=== PATIENT | male | born 1995 | race Caucasian/White ===

== ENCOUNTER 2018-07-13 03:00 | Emergency (ER) | payer BC, MEDICAID ==
[2018-07-13 03:09] VITALS: BP 151/97
[2018-07-13] MEDS ORDERED: Clindamycin HCl 150 MG Cap PO ONE (03:21)
--- NOTE | 2018-07-13 03:31 | EDM.PDOC ---
ED HPI GENERAL MEDICAL PROBLEM - General Chief Complaint: General Stated Complaint: MOUTH PAIN [id number] Time Seen by Provider: 07/13/18 03:15 Source of Information: Reports: Patient, Family, RN, RN Notes Reviewed History Limitations: Reports: No Limitations - History of Present Illness INITIAL COMMENTS - FREE TEXT/NARRATIVE: Pt to the ER with dental pain. Patient states he was seen in the clinic on 07/08 and started on Amoxicillin for a dental abscess. He states he has been taking the medication as prescribed and it seems to be getting worse. Patient states he has not made an appointment with dental. He denies fever or chills, N/V/D. He states the side of his face is hot and painful. 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 Left Lower Face Pain Score (Numeric/FACES): 6 - Related Data Allergies Allergy/AdvReac Type Severity Reaction Status Date / Time cephalexin [Cephalexin] Allergy Edema Verified 07/13/18 03:08 Cephalosporins Allergy unknown Verified 07/13/18 03:08 Home Meds: Home Meds Amoxicillin 500 mg PO TID 07/13/18 [History] Past Medical History - Past Health History Medical/Surgical History: Denies Medical/Surgical History HEENT History: Reports: Other (See Below) Other HEENT History: "bad teeth" Genitourinary History: Reports: Renal Calculus Psychiatric History: Reports: ADHD - Past Surgical History GI Surgical History: Reports: Appendectomy Male Surgical History: Reports: Lithotripsy (ESWL) Social & Family History - Family History Family Medical History: Noncontributory - Tobacco Use Smoking Status *Q: Unknown Ever Smoked - Caffeine Use Caffeine Use: Reports: Soda - Recreational Drug Use Recreational Drug Use: Yes Recreational Drug Type: Reports: Marijuana/Hashish Recreational Drug Use Frequency: Binges ED ROS GENERAL - Review of Systems Review Of Systems: ROS reveals no pertinent complaints other than HPI. ED EXAM, GENERAL - Physical Exam Exam: See Below Exam Limited By: No Limitations General Appearance: Alert, WD/WN, Mild Distress Eye Exam: Bilateral Eye: EOMI, Normal Inspection Ears: Normal External Exam, Hearing Grossly Normal Nose: Normal Inspection Throat/Mouth: Normal Inspection, Normal Voice, No Airway Compromise, Other ( Dental caries, swelling around the left lower 1st and 2nd molars). No: Normal Teeth Head: Atraumatic, Normocephalic Neck: Normal Inspection, Lymphadenopathy (L) Respiratory/Chest: No Respiratory Distress, Lungs Clear, Normal Breath Sounds, No Accessory Muscle Use, Chest Non-Tender Cardiovascular: Normal Peripheral Pulses, Regular Rate, Rhythm, No Edema, No Gallop, No JVD, No Murmur, No Rub Peripheral Pulses: 2+: Radial (L), Radial (R) GI/Abdominal: Normal Bowel Sounds, Soft, Non-Tender (Male) Exam: Deferred Rectal (Males) Exam: Deferred Back Exam: Normal Inspection Extremities: Normal Inspection, Normal Range of Motion, Non-Tender, Normal Capillary Refill, No Pedal Edema Neurological: Alert, Oriented Psychiatric: Normal Affect, Normal Mood Skin Exam: Warm, Dry, Intact, Normal Color, No Rash Lymphatic: Adenopathy (left) Course - Vital Signs Last Recorded V/S: Last Vital Signs Temp 97.6 F 07/13/18 03:08 Pulse 84 07/13/18 03:08 Resp 19 07/13/18 03:08 BP 151/97 H 07/13/18 03:08 Pulse Ox 100 07/13/18 03:08 - Orders/Labs/Meds Meds: Medications Discontinued Medications Generic Name Dose Route Start Last Admin Trade Name Freq PRN Reason Stop Dose Admin Clindamycin HCl 600 mg 07/13/18 03:21 Cleocin PO 07/13/18 03:22 ONETIME ONE Departure - Departure Time of Disposition: 03:27 Disposition: Home, Self-Care 01 Condition: Fair Clinical Impression: Dental abscess - Discharge Information *PRESCRIPTION DRUG MONITORING PROGRAM REVIEWED*: No *COPY OF PRESCRIPTION DRUG MONITORING REPORT IN PATIENT JACOB: No Instructions: Dental Abscess, [id number] Additional Instructions: Follow up with dentist You may take Tylenol and/or Ibuprofen as directed for pain Maximum of 4000mg of Tylenol in 24 hours Drink plenty of fluids RX: Clindamycin
[2018-07-13] MEDS ORDERED: Lidocaine 2% Viscous Solution 100 ML Bottle PO ONE (03:32)
[2018-07-13] MEDS ORDERED: Lidocaine 2% Viscous Solution 15 ML Cup PO ONE (03:40)
== END 2018-07-13 03:53 | disposition home or self-care (01) ==
LOC: DL.ED 03:00
DX: K04.7 Periapical abscess without sinus (principal); Z88.1 Allergy status to other antibiotic agents
CPT/HCPCS: 99282; A9270-GY

== ENCOUNTER 2019-09-16 10:35 | Emergency (ER) | payer MEDICAID ==
[2019-09-16 11:31] LABS: ANION GAP 10.7; CHLORIDE,CL 105 mmol/L (101-111); SODIUM,NA 136 mmol/L (135-145)
[2019-09-16] MEDS ORDERED: Aspirin 81 MG Tab.Chew PO ONE (11:43)
--- NOTE | 2019-09-16 11:50 | EDM.PDOC ---
ED HPI GENERAL MEDICAL PROBLEM - General Chief Complaint: Chest Pain Stated Complaint: CHEST PAIN, HIGH BP Time Seen by Provider: 09/16/19 10:45 Source of Information: Reports: Patient History Limitations: Reports: No Limitations - History of Present Illness INITIAL COMMENTS - FREE TEXT/NARRATIVE: This 24 yo male patient reports to the ED with left sided chest pain that started about 1 hour prior to coming to the ED. The patient reports he currently does not have any chest pain. The patient states that he was having a panic attack while in the vehicle outside the hospital. The patient reports that he was seen in the Clinic 2 days ago for high blood pressure. The patient reports he has been taking his medications as prescribed. Onset: Today Duration: Hour(s):, Resolved Prior to Arrival Location: Reports: Chest (left sided chest pain) Quality: Reports: Other Severity: Mild Improves with: Reports: None Worsens with: Reports: None Context: Reports: Other Associated Symptoms: Reports: Chest Pain - Related Data Allergies Allergy/AdvReac Type Severity Reaction Status Date / Time cephalexin [Cephalexin] Allergy Edema Verified 09/16/19 10:42 Cephalosporins Allergy unknown Verified 09/16/19 10:42 Home Meds: Home Meds Acetaminophen [Tylenol] 500 mg PO Q6H PRN 12/22/18 [History] Calcium Carbonate [Tums] 1 tab PO ASDIRECTED 12/22/18 [History] Ibuprofen 200 mg PO Q6H PRN 12/22/18 [History] Multivitamin [Poly-Vitamin] 1 tab PO DAILY 12/22/18 [History] hydrOXYzine HCl [hydrOXYzine] 25 - 50 mg PO TID PRN 12/22/18 [History] Clindamycin HCl 300 mg PO TID 09/16/19 [History] Past Medical History - Past Health History Medical/Surgical History: Denies Medical/Surgical History HEENT History: Reports: Other (See Below) Other HEENT History: "bad teeth" Cardiovascular History: Reports: Hypertension Respiratory History: Reports: None Gastrointestinal History: Reports: GERD Genitourinary History: Reports: Renal Calculus Musculoskeletal History: Reports: None Neurological History: Reports: None Psychiatric History: Reports: ADHD, Anxiety Endocrine/Metabolic History: Reports: Obesity/BMI 30+ Hematologic History: Reports: None Immunologic History: Reports: None Oncologic (Cancer) History: Reports: None Dermatologic History: Reports: None - Infectious Disease History Infectious Disease History: Reports: None - Past Surgical History GI Surgical History: Reports: Appendectomy Male Surgical History: Reports: Kidney Stone Extraction, Lithotripsy (ESWL) Social & Family History - Family History Family Medical History: Noncontributory - Tobacco Use Years of Tobacco use: 6 Packs/Tins Daily: 1 - Caffeine Use Caffeine Use: Reports: Soda - Recreational Drug Use Recreational Drug Use: No ED ROS GENERAL - Review of Systems Review Of Systems: Comprehensive ROS is negative, except as noted in HPI. ED EXAM, GENERAL - Physical Exam Exam: See Below Exam Limited By: No Limitations General Appearance: Alert, WD/WN, No Apparent Distress Eye Exam: Bilateral Eye: EOMI, Normal Inspection, PERRL Ears: Normal External Exam, Normal Canal, Hearing Grossly Normal, Normal TMs Nose: Normal Inspection, Normal Mucosa, No Blood Throat/Mouth: Normal Inspection, Normal Lips, Normal Teeth, Normal Gums, Normal Oropharynx, Normal Voice, No Airway Compromise Head: Atraumatic, Normocephalic Neck: Normal Inspection, Supple, Non-Tender, Full Range of Motion Respiratory/Chest: No Respiratory Distress, Lungs Clear, Normal Breath Sounds, No Accessory Muscle Use, Chest Non-Tender Cardiovascular: Normal Peripheral Pulses, Regular Rate, Rhythm, No Edema, No Gallop, No JVD, No Murmur, No Rub GI/Abdominal: Normal Bowel Sounds, Soft, Non-Tender, No Organomegaly, No Distention, No Abnormal Bruit, No Mass (Male) Exam: Deferred Rectal (Males) Exam: Deferred Back Exam: Normal Inspection Extremities: Normal Inspection, Normal Range of Motion, Non-Tender, Normal Capillary Refill, No Pedal Edema Neurological: Alert, Oriented, CN II-XII Intact, Normal Cognition, Normal Gait, Normal Reflexes, No Motor/Sensory Deficits Psychiatric: Anxious Skin Exam: Warm, Dry, Intact, Normal Color, No Rash Lymphatic: No Adenopathy Course - Vital Signs Last Recorded V/S: Last Vital Signs Temp 36.8 C 09/16/19 12:30 Pulse 75 09/16/19 14:00 Resp 19 09/16/19 12:30 BP 91/70 09/16/19 14:00 Pulse Ox 99 09/16/19 12:30 - Orders/Labs/Meds Orders: Active Orders 24 hr Category Date Time Status EKG 12 Lead [EKG Documentation Completion] [RC] STAT Care 09/16/19 10:53 Active EKG Documentation Completion [RC] URGENT Care 09/16/19 10:56 Active EKG Documentation Completion [RC] URGENT Care 09/16/19 14:00 Active Labs: Laboratory Tests 09/16/19 09/16/19 09/16/19 Range/Units 11:04 11:04 11:13 WBC 6.3 (5.0-10.0) 10^3/uL RBC 6.06 (4.6-6.2) 10^6/uL Hgb 16.8 (14.0-18.0) g/dL Hct 49.0 (40.0-54.0) % MCV 80.9 D (80-100) fL MCH 27.7 (27.0-34.0) pg MCHC 34.3 (33.0-35.0) g/dL Plt Count 299 (150-450) 10^3/uL Neut % (Auto) 55.5 (42.2-75.2) % Lymph % (Auto) 34.7 (20.5-50.1) % [place] % (Auto) 7.1 (2-8) % Eos % (Auto) 2.1 (1.0-3.0) % Baso % (Auto) 0.6 (0.0-1.0) % Sodium 136 (135-145) mmol/L Potassium 3.7 (3.6-5.0) mmol/L Chloride 105 (101-111) mmol/L Carbon Dioxide 24.0 (21.0-31.0) mmol/L Anion Gap 10.7 BUN 15 (7-18) mg/dL Creatinine 0.9 (0.6-1.3) mg/dL Est Cr Clr Drug Dosing 100.10 mL/min Estimated GFR (MDRD) > 60 BUN/Creatinine Ratio 16.66 Glucose 115 H (74-105) mg/dL Calcium 9.3 (8.4-10.2) mg/dl Total Bilirubin 0.6 (0.2-1.0) mg/dL AST 31 (10-42) IU/L ALT 32 (10-60) IU/L Alkaline Phosphatase 59 (42-121) IU/L Troponin I 0.03 H* (0.00-0.02) ng/ml Total Protein 7.0 (6.7-8.2) g/dl Albumin 4.1 (3.2-5.5) g/dl Globulin 2.9 Albumin/Globulin Ratio 1.41 Urine Color Yellow (YELLOW) Urine Appearance Clear (CLEAR) Urine pH 7.5 (5.0-9.0) Ur Specific [place] 1.020 (1.005-1.030) Urine Protein Negative (NEGATIVE) Urine Glucose (UA) Negative (NEGATIVE) Urine Ketones Negative (NEGATIVE) Urine Occult Blood Trace-intact H (NEGATIVE) Urine Nitrite Negative (NEGATIVE) Urine Bilirubin Negative (NEGATIVE) Urine Urobilinogen 0.2 (0.2-1.0) mg/dL Ur Leukocyte Esterase Negative (NEGATIVE) Urine RBC Not seen /HPF Urine WBC Not seen (0-5/HPF) /HPF Ur Epithelial Cells Rare (NOT SEEN) /HPF Urine Bacteria Not seen (0-FEW/HPF) /HPF Urine Mucus Not seen (NOT SEEN) /LPF Urine Opiates Screen (NEGATIVE) Ur Oxycodone Screen (NEGATIVE) Urine Methadone Screen (NEGATIVE) Ur Barbiturates Screen (NEGATIVE) U Tricyclic Antidepress (NEGATIVE) Ur Phencyclidine Scrn (NEGATIVE) Ur Amphetamine Screen (NEGATIVE) U Methamphetamines Scrn (NEGATIVE) Urine MDMA Screen (NEGATIVE) U Benzodiazepines Scrn (NEGATIVE) Urine Cocaine Screen (NEGATIVE) U Marijuana (THC) Screen (NEGATIVE) 09/16/19 09/16/19 Range/Units 11:13 14:05 WBC (5.0-10.0) 10^3/uL RBC (4.6-6.2) 10^6/uL Hgb (14.0-18.0) g/dL Hct (40.0-54.0) % MCV (80-100) fL MCH (27.0-34.0) pg MCHC (33.0-35.0) g/dL Plt Count (150-450) 10^3/uL Neut % (Auto) (42.2-75.2) % Lymph % (Auto) (20.5-50.1) % [place] % (Auto) (2-8) % Eos % (Auto) (1.0-3.0) % Baso % (Auto) (0.0-1.0) % Sodium (135-145) mmol/L Potassium (3.6-5.0) mmol/L Chloride (101-111) mmol/L Carbon Dioxide (21.0-31.0) mmol/L Anion Gap BUN (7-18) mg/dL Creatinine (0.6-1.3) mg/dL Est Cr Clr Drug Dosing mL/min Estimated GFR (MDRD) BUN/Creatinine Ratio Glucose (74-105) mg/dL Calcium (8.4-10.2) mg/dl Total Bilirubin (0.2-1.0) mg/dL AST (10-42) IU/L ALT (10-60) IU/L Alkaline Phosphatase (42-121) IU/L Troponin I < 0.02 (0.00-0.02) ng/ml Total Protein (6.7-8.2) g/dl Albumin (3.2-5.5) g/dl Globulin Albumin/Globulin Ratio Urine Color (YELLOW) Urine Appearance (CLEAR) Urine pH (5.0-9.0) Ur Specific [place] (1.005-1.030) Urine Protein (NEGATIVE) Urine Glucose (UA) (NEGATIVE) Urine Ketones (NEGATIVE) Urine Occult Blood (NEGATIVE) Urine Nitrite (NEGATIVE) Urine Bilirubin (NEGATIVE) Urine Urobilinogen (0.2-1.0) mg/dL Ur Leukocyte Esterase (NEGATIVE) Urine RBC /HPF Urine WBC (0-5/HPF) /HPF Ur Epithelial Cells (NOT SEEN) /HPF Urine Bacteria (0-FEW/HPF) /HPF Urine Mucus (NOT SEEN) /LPF Urine Opiates Screen Negative (NEGATIVE) Ur Oxycodone Screen Negative (NEGATIVE) Urine Methadone Screen Negative (NEGATIVE) Ur Barbiturates Screen Negative (NEGATIVE) U Tricyclic Antidepress Negative (NEGATIVE) Ur Phencyclidine Scrn Negative (NEGATIVE) Ur Amphetamine Screen Negative (NEGATIVE) U Methamphetamines Scrn Negative (NEGATIVE) Urine MDMA Screen Negative (NEGATIVE) U Benzodiazepines Scrn Negative (NEGATIVE) Urine Cocaine Screen Negative (NEGATIVE) U Marijuana (THC) Screen Negative (NEGATIVE) Meds: Medications Discontinued Medications Generic Name Dose Route Start Last Admin Trade Name Freq PRN Reason Stop Dose Admin Aspirin 324 mg 09/16/19 11:43 09/16/19 11:49 Aspirin PO 09/16/19 11:44 324 mg ONETIME ONE Administration Departure - Departure Time of Disposition: 14:52 Disposition: Home, Self-Care 01 Condition: Good, Fair Clinical Impression: Anxiety, Nonspecific chest pain Instructions: Panic Attack, Nonspecific Chest Pain, [id number] Forms: ED Department Discharge Care Plan Goals: The patient was advised of the examination, lab, EKG, x-ray, repeat lab and repeat EKG results during the visit. The patient was encouraged to follow-up with his primary care facility for continued evaluation and management. If the patient has any additional symptoms or concerns, the patient should either return to the emergency department or visit his primary care facility. - My Orders Last 24 Hours: My Active Orders 09/16/19 10:53 EKG 12 Lead [EKG Documentation Completion] [RC] STAT 09/16/19 10:56 EKG Documentation Completion [RC] URGENT 09/16/19 14:00 EKG Documentation Completion [RC] URGENT - Assessment/Plan Last 24 Hours: My Active Orders 09/16/19 10:53 EKG 12 Lead [EKG Documentation Completion] [RC] STAT 09/16/19 10:56 EKG Documentation Completion [RC] URGENT 09/16/19 14:00 EKG Documentation Completion [RC] URGENT
--- NOTE | 2019-09-16 12:10 | CR ---
EXAMINATION: Chest 1V Frontal SEX: Male AGE: 24 years CLINICAL HISTORY: 24-year-old male experiencing CHEST PAIN. INTERPRETATION: 1. Normal cardiac silhouette. No pulmonary vascular congestion, cephalization of flow, alveolar edema or dependent pleural effusion (external traffic monitor specialist leads). 2. Tay thorax unremarkable. 3. No lung mass, hilar lymphadenopathy or focal lobar pneumonia. 4. No atelectasis/collapse. 5. No pneumothorax. CONCLUSION: Negative exam.
[2019-09-16 12:35] VITALS: PULSE 75
[2019-09-16 14:34] VITALS: BP 91/70
== END 2019-09-16 15:05 | disposition home or self-care (01) ==
LOC: DL.ED 10:35
DX: F41.9 Anxiety disorder, unspecified (principal); E66.9 Obesity, unspecified; I10 Essential (primary) hypertension; Z88.1 Allergy status to other antibiotic agents; Z88.8 Allergy status to other drugs, medicaments and biological substances; Z68.41 Body mass index [BMI] 40.0-44.9, adult
CPT/HCPCS: 36415; 71045; 80053; 80305; 81001; 84484; 85025; 93005; 99285; A9270

== ENCOUNTER 2020-07-29 01:43 | Emergency (ER) | payer MEDICAID ==
[2020-07-29] MEDS ORDERED: Ondansetron 4 MG/2 ML SDV IVPUSH PRN (01:49)
[2020-07-29] MEDS ORDERED: Sodium Chloride 0.9% 1,000 ML IV ONE (01:49)
--- NOTE | 2020-07-29 01:56 | EDM.PDOC ---
ED HPI GENERAL MEDICAL PROBLEM - General Chief Complaint: Abdominal Pain Stated Complaint: PT SAYS LEFTSIDE PAIN,KIDNEY STONE NOT TO LONG AGO Time Seen by Provider: 07/29/20 01:55 Source of Information: Reports: Patient, RN History Limitations: Reports: No Limitations - History of Present Illness INITIAL COMMENTS - FREE TEXT/NARRATIVE: ED with c/o left lower abdominal pain similar to previous with kidney stone. Proior on right and most recent April on left. Pain 8/10 at home, comes and goes now 4/10 no nausea or vomiting. No fever. Urinary frequency no burning or blood. 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 Last BM 2199. Left Abdominal Pain Score (Numeric/FACES): 4 - Related Data Allergies Allergy/AdvReac Type Severity Reaction Status Date / Time cephalexin [Cephalexin] Allergy Edema Verified 07/29/20 01:51 Cephalosporins Allergy unknown Verified 07/29/20 01:51 Home Meds: Home Meds Acetaminophen [Tylenol] 500 mg PO Q6H PRN 12/22/18 [History] Calcium Carbonate [Tums] 1 tab PO ASDIRECTED 12/22/18 [History] Ibuprofen 200 mg PO Q6H PRN 12/22/18 [History] Multivitamin [Poly-Vitamin] 1 tab PO DAILY 12/22/18 [History] hydrOXYzine HCL [hydrOXYzine] 25 - 50 mg PO TID PRN 12/22/18 [History] Clindamycin HCl 300 mg PO TID 09/16/19 [History] Past Medical History - Past Health History Medical/Surgical History: Denies Medical/Surgical History HEENT History: Reports: Other (See Below) Other HEENT History: "bad teeth" Cardiovascular History: Reports: Hypertension Respiratory History: Reports: None Gastrointestinal History: Reports: GERD Genitourinary History: Reports: Renal Calculus Musculoskeletal History: Reports: None Neurological History: Reports: None Psychiatric History: Reports: ADHD, Anxiety Endocrine/Metabolic History: Reports: Obesity/BMI 30+ Hematologic History: Reports: None Immunologic History: Reports: None Oncologic (Cancer) History: Reports: None Dermatologic History: Reports: None - Infectious Disease History Infectious Disease History: Reports: None - Past Surgical History GI Surgical History: Reports: Appendectomy Male Surgical History: Reports: Kidney Stone Extraction, Lithotripsy (ESWL) Social & Family History - Family History Family Medical History: Noncontributory - Tobacco Use Smoking Status *Q: Current Every Day Smoker Years of Tobacco use: 10 Packs/Tins Daily: 0.1 - Caffeine Use Caffeine Use: Reports: Coffee - Recreational Drug Use Recreational Drug Use: Yes Recreational Drug Type: Reports: Marijuana/Hashish ED ROS GENERAL - Review of Systems Review Of Systems: Comprehensive ROS is negative, except as noted in HPI. ED EXAM, RENAL/ - Physical Exam Exam: See Below Exam Limited By: No Limitations General Appearance: Alert, No Apparent Distress Eye Exam: Bilateral Eye: EOMI, PERRL Ears: Normal External Exam Nose: Normal Inspection Throat/Mouth: Normal Inspection, Normal Oropharynx, Normal Voice Neck: Normal Inspection Respiratory/Chest: No Respiratory Distress, Lungs Clear, Normal Breath Sounds Cardiovascular: Regular Rate, Rhythm GI/Abdominal: Normal Bowel Sounds, Soft Back Exam: CVA Tenderness (L) Extremities: Normal Inspection Neurological: Alert, Oriented, Normal Cognition Psychiatric: Normal Affect Skin Exam: Warm, Dry, Intact, Normal Color Course - Vital Signs Last Recorded V/S: Last Vital Signs Temp 96.9 F 07/29/20 01:47 Pulse 79 07/29/20 01:47 Resp 16 07/29/20 01:47 BP 128/84 07/29/20 01:47 Pulse Ox 98 07/29/20 01:47 - Orders/Labs/Meds Orders: Active Orders 24 hr Category Date Time Status Ondansetron [Zofran] Med 07/29/20 01:49 Active 4 mg IVPUSH ONETIME PRN Medication Orders Ondansetron HCl (Zofran) 4 mg IVPUSH ONETIME PRN PRN Reason: Nausea Last Admin: 07/29/20 02:56 Dose: 4 mg Documented by: ADRIANA Labs: Laboratory Tests 07/29/20 07/29/20 07/29/20 Range/Units 02:00 02:00 02:02 WBC 8.5 (5.0-10.0) 10^3/uL RBC 5.40 (4.6-6.2) 10^6/uL Hgb 15.0 D (14.0-18.0) g/dL Hct 44.2 (40.0-54.0) % MCV 81.9 (80-100) fL MCH 27.8 (27.0-34.0) pg MCHC 33.9 (33.0-35.0) g/dL Plt Count 325 (150-450) 10^3/uL Neut % (Auto) 53.0 (42.2-75.2) % Lymph % (Auto) 35.4 (20.5-50.1) % [place] % (Auto) 8.2 H (2-8) % Eos % (Auto) 2.8 (1.0-3.0) % Baso % (Auto) 0.6 (0.0-1.0) % Sodium 138 (136-145) mmol/L Potassium 3.6 (3.5-5.1) mmol/L Chloride 102 (98-107) mmol/L Carbon Dioxide 25 (21-32) mmol/L Anion Gap 14.6 H (7-13) mEq/L BUN 19 H (7-18) mg/dL Creatinine 0.99 (0.70-1.30) mg/dL Est Cr Clr Drug Dosing 90.20 mL/min Estimated GFR (MDRD) > 60 BUN/Creatinine Ratio 19.2 (No establ ref range) Glucose 90 (74-99) mg/dL Calcium 8.7 (8.5-10.1) mg/dL Total Bilirubin 0.3 (0.2-1.0) mg/dL AST 15 (15-37) U/L ALT 48 (16-63) U/L Alkaline Phosphatase 89 (46-116) U/L Total Protein 6.8 (6.4-8.2) g/dL Albumin 3.9 (3.4-5.0) g/dL Globulin 2.9 Albumin/Globulin Ratio 1.3 Urine Color Yellow (YELLOW) Urine Appearance Slightly cloudy (CLEAR) Urine pH 5.5 (5.0-9.0) Ur Specific [place] 1.025 (1.005-1.030) Urine Protein Negative (NEGATIVE) Urine Glucose (UA) Negative (NEGATIVE) Urine Ketones Negative (NEGATIVE) Urine Occult Blood Moderate H (NEGATIVE) Urine Nitrite Negative (NEGATIVE) Urine Bilirubin Negative (NEGATIVE) Urine Urobilinogen 0.2 (0.2-1.0) mg/dL Ur Leukocyte Esterase Negative (NEGATIVE) Urine RBC 50-75 H /HPF Urine WBC 0-5 (0-5/HPF) /HPF Ur Epithelial Cells Rare (NOT SEEN) /HPF Amorphous Sediment Few (NOT SEEN) /HPF Urine Bacteria Few (0-FEW/HPF) /HPF Urine Mucus Few H (NOT SEEN) /LPF Meds: Medications Generic Name Dose Route Start Last Admin Trade Name Freq PRN Reason Stop Dose Admin Ondansetron HCl 4 mg 07/29/20 01:49 07/29/20 02:56 Zofran IVPUSH 4 mg ONETIME PRN Administration Nausea Discontinued Medications Generic Name Dose Route Start Last Admin Trade Name Frerosetta PRN Reason Stop Dose Admin Hydromorphone HCl 1 mg 07/29/20 02:30 07/29/20 02:52 Dilaudid IVPUSH 07/29/20 02:31 1 mg ONETIME ONE Administration Sodium Chloride 1,000 mls @ 999 mls/hr 07/29/20 01:49 07/29/20 02:03 Normal Saline IV 07/29/20 02:49 999 mls/hr .BOLUS ONE Administration Tamsulosin HCl 0.4 mg 07/29/20 03:26 07/29/20 03:33 Flomax PO 07/29/20 03:27 0.4 mg ONETIME ONE Administration Departure - Departure Time of Disposition: 03:43 Disposition: Home, Self-Care 01 Condition: Good Clinical Impression: Kidney stone on left side, Abdominal pain - Discharge Information *PRESCRIPTION DRUG MONITORING PROGRAM REVIEWED*: No *COPY OF PRESCRIPTION DRUG MONITORING REPORT IN PATIENT JACOB: No Instructions: Kidney Stones, [id number], Pain Medicine Instructions, [id number] Forms: ED Department Discharge Additional Instructions: increase fluids percocet 5/325 one every 6 hours as needed for severe pain ibuprofen 600mg every 6 hours as needed for moderate pain flomax 0.4mg one daily for one week follow up with urologist this week Urgent follow up if symptoms worsen and fever Sepsis Event Note (ED) - Evaluation Sepsis Screening Result: No Definite Risk - Focused Exam Vital Signs: Vital Signs Temp Pulse Resp BP Pulse Ox 07/29/20 01:47 96.9 F 79 16 128/84 98 - My Orders Last 24 Hours: My Active Orders 07/29/20 01:49 Ondansetron [Zofran] 4 mg IVPUSH ONETIME PRN - Assessment/Plan Last 24 Hours: My Active Orders 07/29/20 01:49 Ondansetron [Zofran] 4 mg IVPUSH ONETIME PRN
[2020-07-29 02:01] VITALS: BP 128/84; PULSE 79
[2020-07-29 02:26] LABS: ANION GAP 14.6 mEq/L (7-13); CHLORIDE,CL 102 mmol/L (98-107); SODIUM,NA 138 mmol/L (136-145)
[2020-07-29] MEDS ORDERED: HYDROmorphone 1 MG/ML Syringe IVPUSH ONE (02:30)
--- NOTE | 2020-07-29 03:12 | CT ---
PROCEDURE INFORMATION: Exam: CT Abdomen And Pelvis Without Contrast Exam date and time: 07/29/2020 2:46 AM Age: 25 years old Clinical indication: Other: Left sided pain; Additional info: Hematuria, HX stone left, left abdominal pain TECHNIQUE: Imaging protocol: Computed tomography of the abdomen and pelvis without contrast. Radiation optimization: All CT scans at this facility use at least one of these dose optimization techniques: automated exposure control; mA and/or kV adjustment per patient size (includes targeted exams where dose is matched to clinical indication); or iterative reconstruction. COMPARISON: CT Abdomen Pelvis wo Cont 05/09/2020 12:48 PM FINDINGS: Liver: Normal. No mass. Gallbladder and bile ducts: Normal. No calcified stones. No ductal dilation. Pancreas: Normal. No ductal dilation. Spleen: Normal. No splenomegaly. Adrenals: Normal. No mass. Kidneys and ureters: 2 mm x 2 mm stone in the distal left ureter approximately 1 cm above the ureterovesicular junction. It causes mild to moderate left hydronephrosis. There is mild right hydronephrosis. No stones are seen along the course of the right ureter. Stomach and bowel: Unremarkable. No obstruction. No mucosal thickening. Appendix: Status post appendectomy. Intraperitoneal space: Unremarkable. No free air. No significant fluid collection. Vasculature: Unremarkable. No abdominal aortic aneurysm. Lymph nodes: Unremarkable. No enlarged lymph nodes. Urinary bladder: Unremarkable as visualized. Reproductive: Unremarkable as visualized. Bones/joints: Unremarkable. No acute fracture. Soft tissues: Unremarkable. IMPRESSION: 1. Obstructing stone in the distal left ureter measures 2 mm x 2 mm. 2. Mild right hydronephrosis without obstructing stone.
[2020-07-29] MEDS ORDERED: Tamsulosin 0.4 MG Cap.ER PO ONE (03:26)
== END 2020-07-29 03:47 | disposition home or self-care (01) ==
LOC: DL.ED 01:43
DX: N13.2 Hydronephrosis with renal and ureteral calculous obstruction (principal); I10 Essential (primary) hypertension; F41.9 Anxiety disorder, unspecified; F17.210 Nicotine dependence, cigarettes, uncomplicated; E66.9 Obesity, unspecified; Z68.41 Body mass index [BMI] 40.0-44.9, adult; Z88.1 Allergy status to other antibiotic agents; Z79.899 Other long term (current) drug therapy
CPT/HCPCS: 36415; 74176; 80053; 81001; 85025; 96374; 96375; 99284; A9270; J1170; J2405; J7030

== ENCOUNTER 2023-03-06 04:11 | Emergency (ER) | payer MEDICAID ==
[2023-03-06 04:30] VITALS: BP 150/81; PULSE 83
== END 2023-03-06 04:43 | disposition home or self-care (01) ==
LOC: DL.ED 04:11
DX: H60.501 Unspecified acute noninfective otitis externa, right ear (principal); I10 Essential (primary) hypertension; K21.9 Gastro-esophageal reflux disease without esophagitis; E66.9 Obesity, unspecified; Z68.32 Body mass index [BMI] 32.0-32.9, adult; Z88.1 Allergy status to other antibiotic agents; Z88.8 Allergy status to other drugs, medicaments and biological substances
CPT/HCPCS: 99282; 99283

== ENCOUNTER 2024-11-30 10:39 | Emergency (ER) | payer MEDICAID ==
[2024-11-30 11:21] LABS: APPEARANCE,URINE CLEAR (CLEAR); BILIRUBIN,URINE NEGATIVE (NEGATIVE); COLOR,URINE YELLOW (YELLOW); GLUCOSE,URINE NEGATIVE (NEGATIVE); KETONES,URINE NEGATIVE (NEGATIVE); LEUKOCYTE ESTERASE,URINE NEGATIVE (NEGATIVE); NITRITE,URINE NEGATIVE (NEGATIVE); OCCULT BLOOD,URINE NEGATIVE (NEGATIVE); PH,URINE 7.5 (5.0-9.0); PROTEIN,URINE NEGATIVE (NEGATIVE); UROBILINOGEN,URINE 0.2 mg/dL (0.2-1.0)
[2024-11-30 12:22] VITALS: BP 150/97; PULSE 95
[2024-11-30] MEDS: Ketorolac 30 MG/ML SDV IM ONE (12:36)
[2024-11-30] MEDS: Orphenadrine 60 MG/2 ML Inj IM ONE (12:39)
== END 2024-11-30 12:47 | disposition home or self-care (01) ==
LOC: DL.ED 10:39
DX: M54.41 Lumbago with sciatica, right side (principal); I10 Essential (primary) hypertension; E66.9 Obesity, unspecified; Z68.37 Body mass index [BMI] 37.0-37.9, adult; Z88.1 Allergy status to other antibiotic agents; Z88.8 Allergy status to other drugs, medicaments and biological substances; Z79.899 Other long term (current) drug therapy
CPT/HCPCS: 81003; 96372; 99284; J1885; J2360

== ENCOUNTER 2025-02-13 13:58 | Emergency (ER) | payer MEDICAID ==
[2025-02-13] MEDS: GI Cocktail Oral Solution 30 ML PO ONE (14:49)
[2025-02-13] MEDS: Famotidine 20 MG Tab PO ONE (14:49)
[2025-02-13] MEDS ORDERED: Sucralfate 1 GM Tab ONE (15:31)
[2025-02-13 15:32] VITALS: BP 176/92; PULSE 108
== END 2025-02-13 15:54 | disposition home or self-care (01) ==
LOC: DL.ED 13:58
DX: K21.9 Gastro-esophageal reflux disease without esophagitis (principal); I10 Essential (primary) hypertension; E66.9 Obesity, unspecified; Z90.49 Acquired absence of other specified parts of digestive tract; Z79.899 Other long term (current) drug therapy; Z88.1 Allergy status to other antibiotic agents; Z88.8 Allergy status to other drugs, medicaments and biological substances
CPT/HCPCS: 99282; 99283; A9270-GY